=== PATIENT | male | born 1955 | race Caucasian/White ===

== ENCOUNTER 2018-01-02 13:28 | Emergency (ER) | payer OTHER ==
[2018-01-02] MEDS ORDERED: Lidocaine 1% with EPINEPHrine 1:100,000 20 ML MDV INJECT ONE (14:16)
--- NOTE | 2018-01-02 14:23 | EDM.PDOC ---
ED HPI GENERAL MEDICAL PROBLEM - General Chief Complaint: Laceration Stated Complaint: FOREARM LAC Time Seen by Provider: 01/02/18 13:50 Source of Information: Reports: Patient History Limitations: Reports: No Limitations - History of Present Illness INITIAL COMMENTS - FREE TEXT/NARRATIVE: Patient is a 62-year-old male presents ED complaining of a laceration to the midportion of the left forearm. Patient cut his arm on broke piece of thick plate glass. Bleeding controlled with direct pressure. Minimal pain present. The piece of glass broken was from a storm window in the garage. Tetanus status is up to date. Left Lower Arm Pain Score (Numeric/FACES): 1 - Related Data Allergies Allergy/AdvReac Type Severity Reaction Status Date / Time guaifenesin Allergy URINARY Unverified 08/15/13 08:12 TRACT PROBLEMS Home Meds: Home Meds Cephalexin [Keflex] 500 mg PO QID #28 capsule 01/02/18 [Rx] Losartan [Cozaar] 100 mg PO DAILY 01/02/18 [History] Pravastatin [Pravachol] 10 mg PO DAILY 01/02/18 [History] Past Medical History Cardiovascular History: Reports: High Cholesterol, Hypertension Social & Family History - Tobacco Use Smoking Status *Q: Never Smoker - Caffeine Use Caffeine Use: Reports: Coffee, Soda, Tea - Recreational Drug Use Recreational Drug Use: No ED ROS GENERAL - Review of Systems Review Of Systems: ROS reveals no pertinent complaints other than HPI. ED EXAM, SKIN/RASH Exam: See Below Exam Limited By: No Limitations General Appearance: Alert, WD/WN, No Apparent Distress Ears: Hearing Grossly Normal Nose: Normal Inspection Throat/Mouth: Normal Voice, No Airway Compromise Neck: Normal Inspection, Supple Respiratory/Chest: No Respiratory Distress, No Accessory Muscle Use Cardiovascular: Normal Peripheral Pulses, Regular Rate, Rhythm Peripheral Pulses: 2+: Radial (L) Extremities: Normal Range of Motion, Normal Capillary Refill Neurological: Alert, Oriented, No Motor/Sensory Deficits Psychiatric: Normal Affect, Normal Mood Skin: Warm, Dry, Normal Color ED SKIN PROCEDURES - Laceration/Wound Repair Left Arm Lac/Wound length In cm: 3 Appearance: Muscle, Clean, Heavily Contaminated Distal NVT: Neuro & Vascular Intact, No Tendon Injury Anesthetic Type: Local Local Anesthesia - Lidocaine (Xylocaine): 1% with EPI Local Anesthetic Volume: Other (10 ml) Skin Prep: Chlorhexidine (Hibiciens), Saline, Sterile Drape Exploration/Debridement/Repair: Wound Explored, In a Bloodless Field, Explored to Base, No Foreign Material Found, Wound Margins Revised Suture Size: 4-0 # of Sutures: 9 Suture Type: Prolene, Interrupted, Simple # of Sutures: 3 Suture Size: 4-0 # of Sutures: 3 Repaired with: Vicryl Drain Placement: No Sterile Dressing Applied: Nurse Tetanus Status Addressed: Yes Complications: No - Splinting Left Upper Extremity Pre-Procedure NV Status: Normal Post-Procedure NV Status: Normal Splint Material: Fiberglass Splint Design: Volar Applied & Form Fitted By: Provider Provider Post-Splint Application NV Check: NV Status Normal, Good Position Complications: No Course - Vital Signs Last Recorded V/S: Last Vital Signs Temp 98.0 F 01/02/18 13:37 Pulse 75 01/02/18 13:37 Resp 20 01/02/18 13:37 BP 155/67 H 01/02/18 13:37 Pulse Ox 95 01/02/18 13:37 - Orders/Labs/Meds Meds: Medications Discontinued Medications Generic Name Dose Route Start Last Admin Trade Name Freq PRN Reason Stop Dose Admin Cephalexin 500 mg 01/02/18 14:24 01/02/18 15:10 Keflex PO 01/02/18 14:25 500 mg ONETIME ONE Administration Lidocaine/Epinephrine 20 ml 01/02/18 14:16 01/02/18 14:26 Xylocaine 1% With Epinephrine 1:100,000 INJECT 01/02/18 14:17 20 ml ONETIME ONE Administration - Re-Assessments/Exams Free Text/Narrative Re-Assessment/Exam: Patient has a 3 cm deep laceration through the flexor awilda ulnaris muscle with no foreign debris or tendon involvement noted to the left forearm. Order Keflex 500 mg by mouth. Due to the laceration to the muscle body. Short arm splint applied extending out to the tip of his fingers. No complications. Closed by Pablo Cardozo PA-C with no complications. Discharge instructions as documented. Departure - Departure Time of Disposition: 14:23 Disposition: Home, Self-Care 01 Condition: Good Clinical Impression: Laceration of forearm Qualifiers: Encounter type: initial encounter Laterality: left Qualified Code(s): S51.812A - Laceration without foreign body of left forearm, initial encounter - Discharge Information Prescriptions: Cephalexin [Keflex] 500 mg PO QID #28 capsule Instructions: Laceration Care, Adult, [id number], Stitches, [place], or Adhesive Wound Closure, [id number] Referrals: Aguila Mojica MD [Primary Care Provider] - Forms: ED Department Discharge, ED Return to Work/School Form Additional Instructions: Cleanse site twice daily, PAT dry, reapply bacitracin ointment. Keep area clean and dry. Do not soak wound. Return back to the ED for increased redness, increased swelling, or purulent drainage. Take the full course of the antibiotic as prescribed. Keep splint clean and dry. Refrain from lifting with the affected hand. Call make an appointment to see an orthopedic surgeon of your choice for reevaluation when sutures come out.
[2018-01-02] MEDS ORDERED: Cephalexin 500 MG Cap PO ONE (14:24)
== END 2018-01-02 15:49 | disposition home or self-care (01) ==
LOC: JD.ED 13:28
DX: S51.812A Laceration without foreign body of left forearm, initial encounter (principal); I10 Essential (primary) hypertension; W26.8XXA Contact with other sharp object(s), not elsewhere classified, initial encounter; Z88.8 Allergy status to other drugs, medicaments and biological substances
CPT/HCPCS: 12032; 29125; 99283; A9270; 12002

== ENCOUNTER 2021-12-11 16:04 | Emergency (ER) | payer MEDICARE, BC ==
[2021-12-11] MEDS ORDERED: metroNIDAZOLE/Normal Saline 500 MG in Premix Bag 1 BAG IV ONE (18:09)
[2021-12-11] MEDS ORDERED: Cefepime 2 GM in Sodium Chloride 0.9% 50 ML IV ONE (18:09)
== END 2021-12-11 19:10 ==
LOC: JD.ED 16:04
DX: K81.9 Cholecystitis, unspecified (principal); E78.00 Pure hypercholesterolemia, unspecified; I10 Essential (primary) hypertension; Z88.8 Allergy status to other drugs, medicaments and biological substances; Z79.899 Other long term (current) drug therapy; Z20.822 Contact with and (suspected) exposure to COVID-19
CPT/HCPCS: 76705; 96365; 96368; 99284; J0692; J3490; U0002